=== PATIENT | male | born 1955 | race Caucasian/White ===

== ENCOUNTER 2019-04-01 08:11 | Inpatient (IN) | payer BC, OTHER ==
[~2019-04-01] VITALS: Ht 180.3 cm; Wt 117.9 kg
[2019-04-11 13:01] VITALS: BP 120/71
== END 2019-04-11 13:46 | disposition home or self-care (01) | DRG 856 ==
LOC: ED 09:11 → EDIP 10:13 → 3NW 10:36 → DCLOUNGE 04-11 13:41
PROVIDERS: ADMIT Internal Medicine; ATTEND Internal Medicine
PROC: 02HV33Z Insertion of Infusion Device into Superior Vena Cava, Percutaneous Approach (ICD-10-PCS; principal; 2019-04-05)
PROC: 0R9J0ZZ Drainage of Right Shoulder Joint, Open Approach (ICD-10-PCS; 2019-04-05)
PROC: 0RPJ04Z Removal of Internal Fixation Device from Right Shoulder Joint, Open Approach (ICD-10-PCS; 2019-04-05)
PROC: B5181ZA Fluoroscopy of Superior Vena Cava using Low Osmolar Contrast, Guidance (ICD-10-PCS; 2019-04-05)
PROC: B548ZZA Ultrasonography of Superior Vena Cava, Guidance (ICD-10-PCS; 2019-04-05)
DX: T81.41XA Infection following a procedure, superficial incisional surgical site, initial encounter (principal); A41.9 Sepsis, unspecified organism; L03.113 Cellulitis of right upper limb; E46 Unspecified protein-calorie malnutrition; M86.9 Osteomyelitis, unspecified; E66.9 Obesity, unspecified; F32.9 Major depressive disorder, single episode, unspecified; G47.00 Insomnia, unspecified; M10.9 Gout, unspecified; Z96.642 Presence of left artificial hip joint; Y83.8 Other surgical procedures as the cause of abnormal reaction of the patient, or of later complication, without mention of misadventure at the time of the procedure; Z68.36 Body mass index [BMI] 36.0-36.9, adult; Z79.2 Long term (current) use of antibiotics; Z91.81 History of falling; Y92.89 Other specified places as the place of occurrence of the external cause
CPT/HCPCS: 36415; 36573; 80048; 80053; 82040; 82550; 83735; 84550; 85025; 85651; 86140; 87015; 87070; 87075; 87076; 87102; 87116; 87205; 87206; 93005; 99285; G0378; J0878; J1644; J1885; J2175; J2250; J2543; J2704; J3010; C1751; J7040